=== PATIENT | female | born 1975 | race Caucasian/White ===

== ENCOUNTER 2018-04-20 06:45 | Observation (INO) ==
--- NOTE | 2018-04-20 07:30 | ED ---
HPI General Chief complaint: Chest Pain Stated complaint: Chest pain this morning Time Seen by Provider: 04/20/18 07:06 Source: patient Mode of arrival: ambulatory Limitations: no limitations History of Present Illness HPI narrative: Patient is a 42 year old female who comes in complaining of chest pain. She says she woke up with pain to the left chest with breathing. She says she called the nurse [employer] sequest[employer] operator who told her to come to the ED. She has never experienced pain like this before. She has not taken anything for the pain. She denies feeling short of breath. She says the pain lasted about 10 minutes and has not come back since then. She denies nausea or vomiting. She denies leg pain or swelling. She denies recent travel. Severity is moderate. Related Data Home Medications Medication Instructions Recorded Confirmed levothyroxine 125 mcg PO DAILY 04/20/18 04/20/18 lisinopril 10 mg PO DAILY 04/20/18 04/20/18 Allergies Allergy/AdvReac Type Severity Reaction Status Date / Time penicillin G Allergy Intermediate rash Verified 04/20/18 06:51 Review of Systems ROS: all other systems reviewed are negative Constitutional Denies chills and Denies fever(s) ENT Denies dizziness Cardiovascular Reports chest pain Respiratory Denies cough and Denies dyspnea Gastrointestinal Denies nausea and Denies vomiting Musculoskeletal Denies myalgias and Denies arthralgias Integumentary/Breasts Denies sores and Denies wounds Neurologic Denies focal weakness and Denies numbness PMFSH Medical History Medical History Hypertension (Acute) Hypothyroid (Acute) Surgical History Surgical History Hx of sinus surgery (Acute) Social History Social History Substance History: No History of Abuse Smoking Status: Never smoker How Often Do You Have a Drink Containing Alcohol: 2 to 4 times a month Recent Travel in [facility] within the Last 8 Weeks: No Recent Out of Country Travel within the Last 8 Weeks: No Immunization History Tetanus Immunization: Unsure Exam Narrative Exam Narrative: GENERAL: Awake and alert, in no acute distress. SKIN: Focused skin assessment warm/dry. HEAD: Atraumatic. Normocephalic. EYES: Pupils equal and round. No scleral icterus. No injection or drainage. ENT: No nasal bleeding or discharge. Mucous membranes pink and moist. NECK: Trachea midline. No JVD. CARDIOVASCULAR: Regular rate and rhythm. No murmur appreciated. RESPIRATORY: No accessory muscle use. Clear to auscultation. Breath sounds equal bilaterally. GASTROINTESTINAL: Abdomen soft, non-tender, nondistended. MUSCULOSKELETAL: No obvious deformities. No clubbing. No cyanosis. No edema. NEUROLOGICAL: Awake and alert. No obvious cranial nerve deficits. Motor grossly within normal limits. Normal speech. PSYCHIATRIC: Appropriate mood and affect; insight and judgment normal. Course Initial Documented Vital Signs Temperature 97.9 F 04/20/18 06:48 Pulse Rate 62 04/20/18 06:48 Respiratory Rate 18 04/20/18 06:48 Blood Pressure 116/58 L 04/20/18 06:48 Pulse Oximetry 99 04/20/18 06:48 Last Documented Vital Signs Temperature 97.9 F 04/20/18 06:48 Pulse Rate 59 L 04/20/18 07:24 Respiratory Rate 18 04/20/18 07:24 Blood Pressure 144/78 H 04/20/18 07:24 Pulse Oximetry 9 L 04/20/18 07:24 Medical Decision Making MDM Narrative Medical decision making narrative: Patient is a 42 year old female who comes in complaining of left sided chest pain. Exam shows no acute abnormalities. IV established, labs sent. Connected to the security monitor. Labs show no acute abnormalities. Troponin is negative. Given Aspirin. Patient to be placed in chest pain center to further management. Medical Screen Exam Complete: Yes Emergency Medical Condition: Yes Differential Diagnosis Differential Diagnosis: ACS vs NSTEMI vs STEMI Medical Records Medical records reviewed: Yes I reviewed the patient's medical records. Lab Data Lab results reviewed: Yes I reviewed the patient's lab results. Result diagrams: 04/20/18 07:05 04/20/18 07:05 POC Results POC Urine Results Negative Lab Results 04/20/18 04/20/18 04/20/18 Range/Units 07:05 07:05 07:05 CBC w Diff Slide review pending WBC 8.5 (4.0-11.0) th/mm3 RBC 4.17 (4.00-5.30) mil/mm3 Hgb 11.5 L (11.6-15.3) gm/dL Hct 35.3 (35.0-46.0) % MCV 84.5 (80.0-100.0) fL MCH 27.5 (27.0-34.0) pg MCHC 32.5 (32.0-36.0) % RDW 12.8 (11.6-17.2) % Plt Count 229 (150-450) th/mm3 MPV 9.2 (7.0-11.0) fL Differential Comment . PT (9.8-11.6) sec INR Ratio APTT (23.4-31.7) sec Sodium 141 (136-145) meq/L Potassium 4.2 (3.5-5.1) meq/L Chloride 109 H (98-107) meq/L Carbon Dioxide 25.2 (21.0-32.0) meq/L Anion Gap 7 (5-15) meq/L BUN 28 H (7-18) mg/dL Creatinine 1.40 H (0.50-1.00) mg/dL Estimated GFR 41 L (>89) mL/min Random Glucose 99 (74-106) mg/dL Calcium 8.3 L (8.5-10.1) mg/dL Total Bilirubin 0.2 (0.2-1.0) mg/dL AST 10 L (15-37) U/L ALT 16 (10-53) U/L Alkaline Phosphatase 86 (45-117) U/L Total Creatine Kinase 41 (26-192) U/L Troponin I Less than 0.02 L (0.02-0.05) ng/mL B-Natriuretic Peptide 28 (0-100) pg/mL Total Protein 7.2 (6.4-8.2) g/dL Albumin 3.3 L (3.4-5.0) g/dL 04/20/18 Range/Units 07:05 CBC w Diff WBC (4.0-11.0) th/mm3 RBC (4.00-5.30) mil/mm3 Hgb (11.6-15.3) gm/dL Hct (35.0-46.0) % MCV (80.0-100.0) fL MCH (27.0-34.0) pg MCHC (32.0-36.0) % RDW (11.6-17.2) % Plt Count (150-450) th/mm3 MPV (7.0-11.0) fL Differential Comment PT 10.4 (9.8-11.6) sec INR 1.0 Ratio APTT 27.8 (23.4-31.7) sec Sodium (136-145) meq/L Potassium (3.5-5.1) meq/L Chloride (98-107) meq/L Carbon Dioxide (21.0-32.0) meq/L Anion Gap (5-15) meq/L BUN (7-18) mg/dL Creatinine (0.50-1.00) mg/dL Estimated GFR (>89) mL/min Random Glucose (74-106) mg/dL Calcium (8.5-10.1) mg/dL Total Bilirubin (0.2-1.0) mg/dL AST (15-37) U/L ALT (10-53) U/L Alkaline Phosphatase (45-117) U/L Total Creatine Kinase (26-192) U/L Troponin I (0.02-0.05) ng/mL B-Natriuretic Peptide (0-100) pg/mL Total Protein (6.4-8.2) g/dL Albumin (3.4-5.0) g/dL Imaging Data Radiologist's impression: Chest X-Ray 04/20/18 07:16 CONCLUSION: Negative for acute process ECG Data EKG Prior to Arrival: No Attestation: I personally reviewed and interpreted this ECG as follows: Interpretation: ECG shows sinus bradycardia at a rate of [address] elevation or depression Discharge Plan Discharge Disposition Patient Disposition: ED Admit(ED Internal Use Only) Discharge Condition Condition: Stable Discharge Order Discharge Orders: ED Use Only Admit Order (Routine); Ordered 04/20/18 Ordered By: Maddison Mederos Discharge Details Diagnosis: Atypical chest pain Physicians Team ED Provider: Maddison Mederos Primary Care Provider: Abbi Alcantara Attending Provider: Hero Iniguez Discharge Interventions Interventions: Vital Signs Last Done: 04/20/18 06:54 Status ED Status: Admitted Observation Patient
[2018-04-20 07:35] LABS: Hematocrit 35.3 % (35.0-46.0); Hemoglobin 11.5 gm/dL (11.6-15.3); Mean Corpuscular HGB Conc 32.5 % (32.0-36.0); Mean Corpuscular Hemoglobin 27.5 pg (27.0-34.0); Mean Corpuscular Volume 84.5 fL (80.0-100.0); Mean Platelet Volume 9.2 fL (7.0-11.0); Platelet Count 229 th/mm3 (150-450); Red Blood Count 4.17 mil/mm3 (4.00-5.30); Red Cell Distribution Width 12.8 % (11.6-17.2); White Blood Count 8.5 th/mm3 (4.0-11.0)
[2018-04-20 07:39] LABS: Chloride 109 meq/L (98-107); Potassium 4.2 meq/L (3.5-5.1); Sodium 141 meq/L (136-145)
--- NOTE | 2018-04-20 07:40 | XR ---
EXAM DATE: 04/20/2018 7:29 AM EST AGE/SEX: 42 years / Female INDICATIONS: Chest pain CLINICAL DATA: This is the patient's initial encounter. Patient reports that signs and symptoms have been present for 1 day and indicates a pain score of 9/10. MEDICAL/SURGICAL HISTORY: None. None. COMPARISON: No prior exams available for comparison. FINDINGS: A single AP view of the chest demonstrates the lungs to be symmetrically aerated without evidence of mass, infiltrate or effusion. The cardiomediastinal contours are unremarkable. Osseous structures a re intact. CONCLUSION: Negative for acute process Electronically signed by: Wade Pierson MD Board Certified Radiologist 04/20/2018 7:38 AM EST
[2018-04-20 07:42] LABS: Albumin 3.3 g/dL (3.4-5.0); Anion Gap 7 meq/L (5-15); Calcium 8.3 mg/dL (8.5-10.1); Carbon Dioxide 25.2 meq/L (21.0-32.0); Glucose,Random 99 mg/dL (74-106)
[2018-04-20 07:43] LABS: Blood Urea Nitrogen 28 mg/dL (7-18)
[2018-04-20 07:45] LABS: Alanine Aminotransferase 16 U/L (10-53); Aspartate Aminotransferase 10 U/L (15-37)
[2018-04-20 07:46] LABS: Glomerular Filtration Rate 41 mL/min (>89)
[2018-04-20 07:47] LABS: Total Protein 7.2 g/dL (6.4-8.2)
[2018-04-20 07:48] LABS: Alkaline Phosphatase 86 U/L (45-117)
[2018-04-20 08:00] LABS: Creatine Kinase 41 U/L (26-192)
[2018-04-20 08:13] LABS: Activated Partial Thrombo Time 27.8 sec (23.4-31.7); Prothrombin Time 10.4 sec (9.8-11.6)
[2018-04-20 09:15] VITALS: O2SAT 99
[2018-04-20 09:15] LABS: Eosinophils 1 % (0-4); Lymphocytes 29 % (9-44); Monocytes 5 % (0-8); Platelet Estimate Normal (Normal); Platelet Morphology Normal (Normal)
[2018-04-20] MEDS ORDERED: Lisinopril 10 MG Tablet PO SCH (10:00)
--- NOTE | 2018-04-20 10:01 | P.HPIM ---
History of Present Illness Primary Care Physician: Abbi Sanchez MD, R2 Chief Complaint: Chest pain History of Present Illness: This is a pleasant 42-year-old female patient with a known medical history of hypertension and hypothyroidism presented to the ED with complaints of chest pain. Patient states that she woke up around 6 AM this morning and the chest pain woke her up from sleep, she states that the chest pain was located in her left-sided chest, was sharp in nature was associated with diaphoresis and clammy skin, denied any radiation of the pain, denied any associated nausea, vomiting, shortness of breath, lasted roughly 10 minutes and went away on its own. Patient denies any known aggravating or alleviating factors. She denies any recent fevers, chills, cough, headache, abdominal pain, nausea, vomiting, diarrhea or dysuria. She does not smoke tobacco, denies any alcohol or drug use. Patient states that she was seen in her primary care office yesterday and was told she had a heart murmur although nothing was done to work this up. She states that her cholesterol was also checked which was reportedly normal. Patient does admit to a significant family medical history of her father having a CABG at the age of 50. Denies ever having a cardiac stress test in the past. Denies any history of CAD. Review of Systems Review of Systems: all other systems reviewed are negative [facility] Medical History Medical History Hypertension (Acute) Hypothyroid (Acute) Surgical History Surgical History Hx of sinus surgery (Acute) Family History Family History Other Cardiovascular disease Social History Social History Substance History: No History of Abuse Second Hand Smoke Exposure: No Smoking Status: Never smoker How Often Do You Have a Drink Containing Alcohol: 2 to 4 times a month Recent Travel in [facility] within the Last 8 Weeks: No Recent Out of Country Travel within the Last 8 Weeks: No Immunization History Tetanus Immunization: Unsure Medications and Allergies Allergies Allergy/AdvReac Type Severity Reaction Status Date / Time penicillin G Allergy Intermediate rash Verified 04/20/18 06:51 Home Medications Medication Instructions Recorded Confirmed Type levothyroxine 125 mcg PO DAILY 04/20/18 04/20/18 History lisinopril 10 mg PO DAILY 04/20/18 04/20/18 History Active Medications: Active Medications Levothyroxine Sodium (Synthroid) 125 mcg PO DAILY@0600 DILLAN Lisinopril (Prinivil) 10 mg PO DAILY [facility] Nitroglycerin (Nitrostat Sl) 0.4 mg SL Q5M PRN PRN Reason: CHEST PAIN Sodium Chloride (Ns Flush) 2 ml IV.FLUSH UNSCH PRN PRN Reason: FLUSH AFTER USING IV ACCESS Last Admin: 04/20/18 07:32 Dose: 2 ml Sodium Chloride (Ns Flush) 2 ml IV.FLUSH BID DILLAN Sodium Chloride (Ns Flush) 2 ml IV.FLUSH PRN PRN PRN Reason: FLUSH AFTER USING IV ACCESS Physical Exam Vital signs: Vital Signs 04/20/18 06:48 04/20/18 06:54 04/20/18 07:24 Temperature 97.9 F Pulse Rate 62 60 59 L Respiratory Rate 18 18 Blood Pressure 116/58 L 144/78 H Pulse Oximetry 99 99 9 L 04/20/18 09:14 Temperature Pulse Rate 56 L Respiratory Rate 18 Blood Pressure 131/87 Pulse Oximetry 99 Intake & Output 04/19/18 04/20/18 04/20/18 18:59 06:59 18:59 Weight 75 kg Narrative: GENERAL: Well-developed, well-nourished patient in [facility]. SKIN: Warm and dry. No rash. HEAD: Normocephalic. Atraumatic. EYES: Pupils equal and round. No scleral icterus. No injection or drainage. ENT: No nasal bleeding or discharge. Mucous membranes pink and moist. NECK: Supple. Trachea midline. CARDIOVASCULAR: Regular rate and rhythm. S1, S2 noted. 2 out of 6 systolic murmur. Mild reproducible chest discomfort to palpation RESPIRATORY: No accessory muscle use. Clear to auscultation. Breath sounds equal bilaterally. GASTROINTESTINAL: Abdomen soft, non-tender, nondistended. Normoactive bowel sounds x4. MUSCULOSKELETAL: No obvious deformities. Extremities without clubbing, cyanosis , or edema. NEUROLOGICAL: Awake and alert. No obvious cranial nerve deficits. Motor grossly within normal limits. 5/5 muscle strength in bilateral upper and lower extremities. Normal speech. PSYCHIATRIC: Appropriate mood and affect; insight and judgment normal. Results Labs CBC & Chem 7: 04/20/18 07:05 04/20/18 07:05 Imaging Impressions Chest X-Ray 04/20/18 07:16 CONCLUSION: Negative for acute process Caprini VTE Risk Assessment Caprini VTE Risk Assessment: No/Low Risk (score <= 1) Caprini Risk Assessment Model: Point Value = 1 Point Value = 2 Point Value = 3 Point Value = 5 Age 41-60 Minor surgery BMI > 25 kg/m2 Swollen legs Varicose veins or History of unexplained or recurrent spontaneous Oral contraceptives or hormone replacement Sepsis (< 1 month) Serious lung disease, including pneumonia (< 1 month) Abnormal pulmonary function Acute myocardial infarction Congestive heart failure (< 1 month) History of inflammatory bowel disease Medical patient at bed rest Age 61-74 Arthroscopic surgery Major open surgery (> 45 min) Laparoscopic surgery (> 45 min) Malignancy Confined to bed (> 72 hours) Immobilizing plaster cast Central venous access Age >= 75 History of VTE Family history of VTE Factor V Leiden Prothrombin [id number] Lupus anticoagulant Anticardiolipin antibodies Elevated serum homocysteine Heparin-induced thrombocytopenia Other congenital or acquired thrombophilia Stroke (< 1 month) Elective arthroplasty Hip, pelvis, or leg fracture Acute spinal cord injury (< 1 month) Prophylaxis Regimen: Total Risk Factor Score Risk Level Prophylaxis Regimen 0-1 Low Early ambulation 2 Moderate Order ONE of the following: *Sequential Compression Device (SCD) *Heparin 5000 units SQ BID 3-4 Higher Order ONE of the following medications: *Heparin 5000 units SQ TID *Enoxaparin/Lovenox 40 mg SQ daily (WT < 150 kg, CrCl > 30 mL/min) *Enoxaparin/Lovenox 30 mg SQ daily (WT < 150 kg, CrCl > 10-29 mL/min) *Enoxaparin/Lovenox 30 mg SQ BID (WT < 150 kg, CrCl > 30 mL/min) AND/OR *Sequential Compression Device (SCD) 5 or more Highest Order ONE of the following medications: *Heparin 5000 units SQ TID (Preferred with Epidurals) *Enoxaparin/Lovenox 40 mg SQ daily (WT < 150 kg, CrCl > 30 mL/min) *Enoxaparin/Lovenox 30 mg SQ daily (WT < 150 kg, CrCl > 10-29 mL/min) *Enoxaparin/Lovenox 30 mg SQ BID (WT < 150 kg, CrCl > 30 mL/min) AND *Sequential Compression Device (SCD) Assessment and Plan Plan This is a 42-year-old female patient with a known medical history of hypothyroidism and hypertension who presented to the ED with complaints of chest pain. Chest pain, atypical -Patient has been admitted to chest pain center for observation. -Serial EKGs and serial troponins have been ordered for ruling out ACS purposes. -Initial 2 troponins flat. Continue to monitor trend. -EKG reviewed showing sinus bradycardia, no ST changes to indicate any ischemia. -Continue on cardiac telemetry, monitor for any arrhythmias. None overnight. -Denies any history of dyslipidemia. -CXR reviewed showing no acute cardiopulmonary disease. -Patient's risk factors for CAD include family history of father having an DE at the age of 50, hypertension. -Patient will undergo a cardiac treadmill stress test to further rule out any ischemia. -Patient stable at this time and agreeable to plan. Hypothyroidism -Continue home levothyroxine. -Managed by PCP. Elevated creatinine Chronic kidney disease -Patient states that she has been following with her PCP regarding her elevated creatinine and kidney function. -Creatinine 1.4 stable for patient. She had an outpatient ultrasound of the kidneys which showed some disfunction of the left. -She has close follow up. This is stable at this time and will be managed outpatient. Hypertension, chronic -Continue home medications. Monitior BP trends. DVT Prophylaxis: SCDs. D/w patient, patient's , bedside RN and Dr. Iniguez.
[2018-04-20 11:21] LABS: Creatine Kinase 39 U/L (26-192)
--- NOTE | 2018-04-20 13:27 | ECG ---
Date Performed: 04/20/2018 Time Performed: 10:23:19 PTAGE: 42 years EKG: SINUS BRADYCARDIA BORDERLINE ECG PREVIOUS TRACING : 04/20/2018 07.14 Since the previous tracing, no significant change noted DOCTOR: Leatha Blanton Interpretating Date/Time 04/20/2018 13:26:17
--- NOTE | 2018-04-20 13:31 | ECG ---
Date Performed: 04/20/2018 Time Performed: 07:14:50 PTAGE: 42 years EKG: SINUS BRADYCARDIA BORDERLINE ECG NO PREVIOUS TRACING DOCTOR: Leatha Blanton Interpretating Date/Time 04/20/2018 13:30:21
--- NOTE | 2018-04-20 14:32 | ECHRPT ---
Indication: HEART FAILURE CONCLUSIONS Normal left ventricular size. Wall thickness is normal. The left ventricular systolic function is normal with an estimated ejection fraction in the range of 55-60%. There was redundancy of the interatrial septum, with borderline criterial for septal aneurysm (benig n finding). Trace mitral valve regurgitation. There is trace tricuspid valve regurgitation. BP: / HR: Rhythm: Sinus MEASUREMENTS (Male / Female) Normal Values Technical Quality:Fair 2D ECHO LV Diastolic Diameter PLAX 4.4 cm 4.2 - 5.9 / 3.9 - 5.3 cm LV Systolic Diameter PLAX 3.3 cm IVS Diastolic Thickness 0.9 cm 0.6 - 1.0 / 0.6 - 0.9 cm LVPW Diastolic Thickness 1.0 cm 0.6 - 1.0 / 0.6 - 0.9 cm LV Relative Wall Thickness 0.4 RV Internal Dim ED PLAX 2.8 cm LVOT Diameter 1.9 cm LA Systolic Diameter LX 2.9 cm 3.0 - 4.0 / 2.7 - 3.8 cm M-MODE AV Cusp Separation MM 1.9 cm DOPPLER AV Peak Velocity 182.0 cm/s AV Peak Gradient 13.2 mmHg AV Mean Gradient 6.0 mmHg AV Velocity Time Integral 41.8 cm LVOT Peak Velocity 137.0 cm/s LVOT Peak Gradient 7.5 mmHg LVOT Velocity Time Integral 32.1 cm AV Area Cont Eq vti 2.2 cm AV Area Cont Eq pk 2.1 cm Mitral E Point Velocity 110.0 cm/s Mitral A Point Velocity 65.2 cm/s Mitral E to A Ratio 1.7 LV E' Lateral Velocity 16.8 cm/s Mitral E to LV E' Lateral Ratio 6.5 LV E' Septal Velocity 10.1 cm/s Mitral E to LV E' Septal Ratio 10.9 TR Peak Velocity 210.0 cm/s TR Peak Gradient 17.6 mmHg Right Atrial Pressure 10.0 mmHg Pulmonary Artery Systolic Pressu 27.6 mmHg Right Ventricular Systolic Press 27.6 mmHg PV Peak Velocity 147.0 cm/s PV Peak Gradient 8.6 mmHg FINDINGS LEFT VENTRICLE Normal left ventricular size. Wall thickness is normal. The left ventricular systolic function is normal with an estimated ejection fraction in the range of 55-60%. RIGHT VENTRICLE Normal right ventricular size and systolic function. LEFT ATRIUM The left atrial size is normal. ATRIAL SEPTUM There was redundancy of the interatrial septum, with borderline criterial for septal aneurysm (benig n finding). AORTA The aortic root and proximal ascending aorta are normal in size on limited imaging. MITRAL VALVE Trace mitral valve regurgitation. AORTIC VALVE Trileaflet aortic valve. No aortic valve stenosis or regurgitation. TRICUSPID VALVE There is trace tricuspid valve regurgitation. PULMONARY VALVE No pulmonary valve regurgitation or stenosis. VESSELS The inferior vena cava is normal in size. PERICARDIUM No pericardial effusion. Jim Stuart MD (Electronically Signed) Final Date:20 April 2018 14:32
[2018-04-20 14:51] VITALS: BP 116/68; PULSE 58; RESP 20; TEMP 98
[2018-04-21] MEDS ORDERED: Levothyroxine 125 MCG Tablet PO SCH (06:00)
--- NOTE | 2018-04-21 07:07 | TR ---
Date Performed: 04/20/2018 Time Performed: 12:41:38 DOCTOR: Kevin Friedman DRUG LIST: CLINICAL HISTORY: REASON FOR TEST: REASON FOR ENDING: OBSERVATION: CONCLUSION: Frankie protocol completed, test stopped sec to reaching target heart rate. Great exer cise tolerance. Good BP response. Recovery quick and unremarkable. No ST changes noted. Maximum HR=15 1 Target II=096 Maximum PY=219/72 Total Exercise Time=7:29 COMMENTS: Patient exercised using the Frankie protocol. No electrocardiographic changes were seen to suggest ischemia. Hemodynamic response to exercise was normal. No significant arrhythmia was prese nt.
== END 2018-04-20 16:24 | disposition home or self-care (01) ==
LOC: PHEDA 06:45 → PHED 06:45 → PHEDA 09:53 → PH3 10:06
PROVIDERS: ADMIT Hospitalist; ATTEND Hospitalist
DX: R07.89 Other chest pain; Z79.899 Other long term (current) drug therapy; I12.9 Hypertensive chronic kidney disease with stage 1 through stage 4 chronic kidney disease, or unspecified chronic kidney disease; N18.9 Chronic kidney disease, unspecified; R00.1 Bradycardia, unspecified; E03.9 Hypothyroidism, unspecified
CPT/HCPCS: 71010; 71045; 80053; 82550; 83520; 83880; 84484; 84703; 85025; 85610; 85730; 93005; 93017; 93306; 99285; G0378